=== PATIENT | female | born 1970 | race Caucasian/White ===

== ENCOUNTER → 2018-01-22 | Outpatient (CLI) | payer OTHER ==
[~2018-01-22] MED LIST: FLEXERIL PO; HYDROCODON-ACE1 EAC7 PO; IBUPROFEN 800800 M1 PO; MAXALT5 MG PO; NEURONTIN 300300 M1 PO; PAMELOR10 MG PO; PRILOSEC 20 MG20 MG PO; TRAMADOL 50 MG50 MG PO
== END ==
LOC: CAT 10:47
DX: Z13.6 Encounter for screening for cardiovascular disorders (principal); E78.00 Pure hypercholesterolemia, unspecified